=== PATIENT | female | born 1935 | race Caucasian/White ===

== ENCOUNTER 2023-06-24 07:03 | Day surgery (SDC) | payer OTHER ==
[~2023-06-24] VITALS: Ht 165.1 cm; Wt 65.8 kg
[2023-06-24] MEDS: ceFAZolin SODIUM 2 GM in D5W 50 ML IV ONE (07:00)
[2023-06-24] MEDS: oxyCODONE HCL 10 MG TAB.ER.12H PO ONE ×2 (07:00→07:24)
[2023-06-24] MEDS: CELECOXIB 100 MG CAPSULE ONE (07:16)
[2023-06-24] MEDS: ACETAMINOPHEN 500 MG TABLET ONE (07:16)
[2023-06-24] MEDS: GABAPENTIN 300 MG CAPSULE ONE (07:24)
[2023-06-24] MEDS: SCOPOLAMINE HYDROBROMIDE 1 MG PATCH .72 H (TRANSDERM-SCOP) TD ONE ×2 (07:24→08:10)
[2023-06-24] MEDS: CELECOXIB 100 MG CAPSULE PO ONE (08:10)
[2023-06-24] MEDS: GABAPENTIN 300 MG CAPSULE PO ONE (08:10)
[2023-06-24] MEDS: ACETAMINOPHEN 500 MG TABLET PO ONE (08:10)
[2023-06-24] MEDS ORDERED: PROPOFOL 200MG/ 20ML VIAL (DIPRIVAN) IV ONE (09:10)
[2023-06-24] MEDS ORDERED: fentaNYL CITRATE/PF 100 MCG/2 ML AMP ONE (09:10)
[2023-06-24] MEDS ORDERED: MIDAZOLAM HCL/PF 2 MG/2 ML SYRINGE ONE (09:10)
[2023-06-24] MEDS ORDERED: ONDANSETRON HCL 4 MG/2 ML VIAL ONE (09:10)
[2023-06-24] MEDS ORDERED: SUGAMMADEX SODIUM 200 MG/2 ML VIAL IV ONE (09:10)
[2023-06-24] MEDS ORDERED: WATER FOR IRRIGATION,STERILE 1,000 ML IRRIG.SOLN IR ONE (09:10)
[2023-06-24] MEDS ORDERED: NS 1000 ML IV.SOLN IV ONE ×2 (09:10)
[2023-06-24] MEDS ORDERED: LR 1,000 ML IV.SOLN IV ONE (09:10)
[2023-06-24] MEDS ORDERED: DESFLURANE 15 MIN GAS INH ONE (09:10)
[2023-06-24] MEDS ORDERED: ROCURONIUM BROMIDE 10 MG/ML (ZEMURON) ONE (09:10)
[2023-06-24] MEDS ORDERED: VANCOMYCIN HCL 1000 MG/VIAL IV ONE (09:10)
[2023-06-24] MEDS ORDERED: DEXAMETHASONE SOD PHOSPHATE 4 MG/ML VIAL ONE (09:10)
[2023-06-24] MEDS ORDERED: TRANEXAMIC ACID 1,000 MG/10 ML VIAL ONE (09:10)
[2023-06-24] MEDS ORDERED: BUPIVACAINE /PF 0.25% 30 ML VIAL INJ ONE (09:10)
[2023-06-24] MEDS ORDERED: METOCLOPRAMIDE HCL 10 MG/2 ML VIAL IVP PRN ×2 (09:30→10:15)
[2023-06-24] MEDS ORDERED: BISACODYL 10 MG/SUPPOSITORY RC PRN (09:30)
[2023-06-24] MEDS ORDERED: LACTULOSE 20 GM/30 ML UDC PO PRN (09:30)
[2023-06-24] MEDS ORDERED: DIPHENHYDRAMINE HCL 25 MG CAPSULE PO PRN (09:30)
[2023-06-24] MEDS: LR 1,000 ML IV SCH (10:15)
[2023-06-24] MEDS ORDERED: MEPERIDINE HCL/PF 25 MG/ML DISP.SYRIN IVP PRN (10:15)
[2023-06-24] MEDS ORDERED: HYDROmorphone 1 MG/ML INJ. CARTRIDGE IVP PRN ×4 (10:15→11:00)
[2023-06-24] MEDS ORDERED: LORATADINE 10 MG TABLET PO PRN (11:00)
[2023-06-24] MEDS: ceFAZolin SODIUM 2 GM in D5W 50 ML IV SCH (11:00)
[2023-06-24] MEDS ORDERED: ONDANSETRON HCL 4 MG/2 ML VIAL IVP PRN (11:45)
[2023-06-24 13:30] VITALS: BP_SYST 142; PULSE 60; RESP 16; TEMP 97.6; O2SAT 96
[2023-06-24 14:54] VITALS: BP_SYST 142; PULSE 61; RESP 18; TEMP 97
[2023-06-24 16:00] VITALS: BP_SYST 110; PULSE 65; RESP 18; TEMP 97.8; O2SAT 96
[2023-06-24] MEDS: ACETAMINOPHEN 500 MG TABLET PO SCH (16:30)
[2023-06-24] MEDS: KETOROLAC TROMETHAMINE 10 MG TABLET (TORADOL) PO SCH (16:30)
[2023-06-24] MEDS: SENNOSIDES/DOCUSATE SODIUM 1 TAB TABLET(SENOKOT-S) PO SCH (21:05)
[2023-06-24 22:07] VITALS: BP_SYST 129; PULSE 75; RESP 18; TEMP 97.6; O2SAT 97
[2023-06-24] MEDS: traMADol HCL HCL 50 MG TABLET (ULTRAM) PO PRN (22:25)
[2023-06-25 00:09] VITALS: BP_SYST 120; PULSE 70; RESP 15; TEMP 97.9; O2SAT 99
[2023-06-25] MEDS: HYDROmorphone 1 MG/ML INJ. CARTRIDGE IVP PRN (01:18)
[2023-06-25 04:26] VITALS: O2SAT 99
[2023-06-25 06:53] LABS: ALANINE AMINOTRANSFERASE 18 U/L (12-78); ALBUMIN 2.8 g/dL (3.4-4.8); ANION GAP 4 (5-15); ASPARTATE AMINOTRANSFERASE < 5 U/L (10-37); CALCIUM 8.6 mg/dL (8.4-11.0); CARBON DIOXIDE 30 mmol/L (23-29); CHLORIDE 108 mmol/L (98-107); CREATININE 0.81 mg/dL (0.55-1.30); GLUCOSE 104 mg/dL (74-106); POTASSIUM 4.8 mmol/L (3.5-5.1); SODIUM SERUM 142 mmol/L (136-145); TOTAL BILIRUBIN 0.3 mg/dL (0.0-1.0); TOTAL PROTEIN, SERUM 5.6 g/dL (6.4-8.3); UREA NITROGEN, BLOOD 18 mg/dL (8-21)
[2023-06-25 08:00] VITALS: BP_SYST 124; PULSE 66; RESP 16; TEMP 97.7; O2SAT 99
[2023-06-25] MEDS: ASPIRIN 81 MG TAB.CHEW PO SCH (08:39)
[2023-06-25 11:07] VITALS: BP_SYST 111; PULSE 67; RESP 16; TEMP 96.4; O2SAT 96
[2023-06-25 11:38] VITALS: BP_SYST 128; PULSE 68; RESP 18; TEMP 97.8; O2SAT 98
[2023-06-25 15:09] VITALS: BP_SYST 124; PULSE 67; RESP 16; TEMP 98; O2SAT 95
[2023-06-25] MEDS: CELECOXIB 200 MG CAPSULE PO SCH (15:09)
== END 2023-06-25 16:45 ==
LOC: SDS 07:03 → SMU 07:04 → EDSTATUS 09:45 → SMU 13:33 → SDS 06-25 16:45
PROVIDERS: ATTEND Student in an Organized Health Care Education/Training Program
DX: M16.12 Unilateral primary osteoarthritis, left hip (principal); G43.909 Migraine, unspecified, not intractable, without status migrainosus; Z90.710 Acquired absence of both cervix and uterus; Z90.49 Acquired absence of other specified parts of digestive tract; Z96.641 Presence of right artificial hip joint; Z98.1 Arthrodesis status; Z98.890 Other specified postprocedural states; Z79.899 Other long term (current) drug therapy
CPT/HCPCS: 96379; 87081; 64450; 27130; 80053; 36415; 72170; 88304; 88311; 97110; 97530; 97116; 97162; J3490 ×3; J1100; J3465; J2405; J2704; J3370; J3010; J7060; J7120; J7030; A4649; C1776 ×4; C1713; J1170; 76001